=== PATIENT | female | born 1960 | race Two or more races ===

== ENCOUNTER → 2019-10-11 | Outpatient (CLI) | payer OTHER ==
[2017-01-13 15:00] VITALS: BP 108/55
[~2019-10-11] MED LIST: CIPR500T94 PO; METR500T PO
--- NOTE | 2019-10-12 17:31 | RAD ---
DATE: 10/11/2019 EXAM: DIGITAL SCREEN BILAT W/CAD HISTORY: Routine screening COMPARISON: None available. This exam is the baseline. This study was interpreted with the benefit of Computerized Aided Detection (CAD). Breast Density: FATTY The breast parenchyma is primarily fatty replaced. Breast parenchyma level density A. FINDINGS: No suspicious calcification cluster, mass, or distortion. Mild subareolar ductal ectasia is present on the right. IMPRESSION: Unremarkable BI-RADS CATEGORY: 1 NEGATIVE RECOMMENDED FOLLOW-UP: 12M 12 MONTH FOLLOW-UP PQRS compliance statement: Patient information was entered into a reminder system with a target due date for the next mammogram. Mammography is a sensitive method for finding small breast cancers, but it does not detect them all and is not a substitute for careful clinical examination. A negative mammogram does not negate a clinically suspicious finding and should not result in delay in biopsying a clinically suspicious abnormality. "Our facility is accredited by the [employer] Mammography Program."
== END | disposition home or self-care (01) ==
LOC: MAMMO 09:56
PROVIDERS: ATTEND Family Medicine
DX: Z12.31 Encounter for screening mammogram for malignant neoplasm of breast (principal); N60.41 Mammary duct ectasia of right breast
CPT/HCPCS: 77067